=== PATIENT | female | born 1985 | race Caucasian/White ===

== ENCOUNTER 2022-02-14 21:58 | Emergency (ER) | payer MEDICARE, OTHER, SELFPAY ==
--- NOTE | ~2022-02-14 | CT_ITS ---
EXAMINATION: CTA chest PE protocol DATE: 02/14/2022 22:48 INDICATION: Chest pain and pressure radiating to the jaw. Shortness of breath. TECHNIQUE: Computed tomography (CT) pulmonary angiogram of the chest was performed with 100 mL Omnipa que-350 intravenous contrast. Additional 3D reconstructions utilizing coronal maximum intensity proje ction (MIP) were performed. Automated exposure control and iterative reconstruction technique were em ployed. The dose-length product was 358.48 mGy-cm. COMPARISON: None FINDINGS: No pulmonary embolism. No pneumonia, pulmonary edema, pleural effusion or pneumothorax. Heart size is normal. Attenuation material in the region of the atrial septum distorted by motion artifact likely representing an ASD closure device. Correlate with surgical history. No pericardial effusion. Thoraci c aorta is normal in caliber with no dissection. No pathologically enlarged thoracic lymphadenopathy. Visualized upper abdomen is unremarkable. Mild lower thoracic levocurvature. IMPRESSION: 1. No pulmonary embolism or other acute cardiopulmonary disease. Reviewed, dictated and finalized at location A.
[2022-02-14 21:57] VITALS: BP 142/86; PULSE 117; RESP 15; TEMP 36.6; O2SAT 96
[2022-02-14 22:00] VITALS: PULSE 98
--- NOTE | 2022-02-14 22:04 | ECG_ITS ---
Measurements Intervals [place] Rate: 115 P: 48 [place]: 190 QRS: -35 QRSD: 84 T: 71 QT: 332 QTc: 460 Interpretive Statements SINUS TACHYCARDIA LOW QRS VOLTAGE IN EXTREMITY LEADS CANNOT RULE OUT INFERIOR MYOCARDIAL INFARCTION , OF INDETERMINATE AGE ANTEROSEPTAL MYOCARDIAL INFARCTION , OF INDETERMINATE AGE ABNORMAL ECG NO PREVIOUS ECG AVAILABLE FOR COMPARISON Electronically Signed On 02-15-2022 15:58:57 CDT by Bartolome Booth M.D.
[2022-02-14 22:08] VITALS: O2SAT 97
[2022-02-14 22:15] LABS: Basophils Percent Auto 0.3 % (0.2-1.2); Eosinophils Absolute Auto 0.1 K/mm3 (0-0.3); Eosinophils Percent Auto 1.2 % (0-4.4); Hemoglobin 12.9 g/dL (12.0-15.0); Immature Granulocyte Absolute 0.04 K/mm3 (0.00-0.031); Immature Granulocyte Percent A 0.6 % (0-0.5); Lymphocytes Absolute Auto 0.46 K/mm3 (0.9-3.2); Lymphocytes Percent Auto 6.7 % (18.3-44.2); Mean Corpuscular HGB Conc 34.9 g/dl (32-36); Mean Corpuscular Hemoglobin 29.7 pg (26-34); Mean Corpuscular Volume 85.3 fl (80-100); Monocytes Absolute Auto 0.6 K/mm3 (0.1-0.6); Monocytes Percent Auto 8.8 % (2.6-8.5); Neutrophils Absolute Auto 5.7 K/mm3 (1.3-6.7); Neutrophils Percent Auto 82.4 % (45.5-73.1); Platelet Count Result 220 k/mm3 (150-375); Red Blood Count 4.34 M/mm3 (4.2-5.4); Red Cell Distribution Width 12.3 % (11.5-14.5); White Blood Count 6.9 K/mm3 (4.5-10.0)
[2022-02-14 22:16] VITALS: BP 154/87; PULSE 113; RESP 13; O2SAT 97
[2022-02-14] MEDS: KETOROLAC 30 MG/ML VIAL (*BKC) IV PUSH (22:21)
[2022-02-14 22:24] LABS: Alanine Aminotransferase 22 U/L (6-35); Albumin Level 4.1 g/dL (3.5-5.1); Alkaline Phosphatase 87 U/L (38-126); Anion Gap 11 mmol/L (8-16); Aspartate Amino Transferase 26 U/L (14-36); Bilirubin,Total 0.4 mg/dL (0.2-1.3); Blood Urea Nitrogen 9 mg/dL (7-17); Calcium 8.7 mg/dL (8.4-10.2); Carbon Dioxide 22 mmol/L (22-30); Chloride 98 mmol/L (98-107); Estimated CRCL calculation 162 ml/min; Estimated Glomerular Filt Rate > 60; Glucose 270 mg/dL (65-110); Lipase 24 U/L (23-300); Potassium 3.3 mmol/L (3.4-5.0); Sodium 131 mmol/L (137-145)
[2022-02-14 22:25] LABS: INR 0.9; Prothrombin Time 12.2 Seconds (11.1-14.7)
[2022-02-14 22:26] LABS: Partial Thromboplastin Time 27.4 SECONDS (22.3-36.8)
[2022-02-14 22:36] LABS: Troponin I < 0.012 ng/mL (0.000-0.034)
[2022-02-14 22:45] VITALS: BP 154/85; PULSE 106; RESP 12; O2SAT 97
--- NOTE | 2022-02-14 22:48 | ED.CHESTPAIN ---
HPI - Chest Pain General Chief Complaint: Chest Pain Stated Complaint: Chest Pain Time Seen by Provider: 02/14/22 22:02 History of Present Illness HPI narrative: Patient is a 36-year-old female who presents ER with sudden onset chest pain. Began 1 hour prior to arrival. Pain is in her central chest her back and her neck. All started the same time. Worse with deep breath. No fevers or chills or sweats. No sinus congestion or productive cough. Cannot describe any aggravating factors outside deep breath and cannot describe any alleviating factors. Patient reports history of [place] in the past but denies any PCI. She reports she did have a PFO that was fixed. Patient has history of a blood clot in her kidney in the past but is no longer on blood thinners. No lower extremity swelling or cramping. Related Data Home Medications Medication Instructions Recorded Confirmed Creon 20 02/14/22 02/14/22 Movantik 25 mg 02/14/22 atorvastatin 40 mg tablet mg 02/14/22 bupropion HCl 150 mg tablet,12 hr 150 mg PO DAILY 02/14/22 02/14/22 sustained-release buspirone 15 mg tablet 15 mg PO TID 02/14/22 02/14/22 cyclobenzaprine 10 mg tablet 10 mg PO TID 02/14/22 02/14/22 cyproheptadine 4 mg tablet 4 mg PO BID 02/14/22 02/14/22 diazepam 5 mg tablet 5 mg PO BID PRN Anxiety 02/14/22 02/14/22 famotidine 40 mg tablet 40 mg PO DAILY 02/14/22 02/14/22 fenofibrate 150 mg capsule mg PO 02/14/22 gabapentin 800 mg tablet 800 mg PO TID 02/14/22 02/14/22 hydrocodone 7.5 mg-acetaminophen 1 tablet PO Q4H PRN Pain 02/14/22 02/14/22 325 mg tablet hydroxyzine HCl 10 mg tablet mg 02/14/22 insulin degludec 100 unit/mL 100 unit subcut DAILY 02/14/22 02/14/22 subcutaneous solution (Tresiba U-100 Insulin) lisinopril 5 mg tablet 5 mg PO DAILY 02/14/22 02/14/22 melatonin 10 mg tablet 10 mg PO HS PRN Sleep 02/14/22 02/14/22 metaxalone 800 mg tablet 800 mg PO QID 02/14/22 02/14/22 metformin 1,000 mg tablet 1,000 mg PO DAILY 02/14/22 02/14/22 methocarbamol 500 mg tablet 500 mg PO HS 02/14/22 02/14/22 metoprolol succinate 25 mg mg PO 02/14/22 tablet,extended release 24 hr oxycodone-acetaminophen 5 mg-325 1 tablet PO Q6H PRN Pain 02/14/22 02/14/22 mg tablet potassium chloride 10 mEq 10 meq PO 1XD 02/14/22 02/14/22 capsule,extended release promethazine 25 mg tablet 25 mg PO TID 02/14/22 02/14/22 quetiapine 400 mg tablet 400 mg PO BID 02/14/22 02/14/22 sertraline 100 mg tablet 100 mg PO DAILY 02/14/22 02/14/22 trazodone 150 mg tablet 150 mg PO HS 02/14/22 02/14/22 Allergies Allergy/AdvReac Type Severity Reaction Status Date / Time No Known Allergies Allergy Verified 02/14/22 22:19 Review of Systems Review of Systems: All systems reviewed & are unremarkable except as noted in HPI and below Constitutional: Constitutional: Denies chills, Denies fatigue and Denies fever(s) ENT: Denies nasal congestion and Denies sore throat Cardiovascular: Cardiovascular: Reports chest pain, Reports rapid heart rate and Reports radiating jaw, neck or arm pain Respiratory: Respiratory: Denies cough and Denies dyspnea Comments: Pain with deep breath Gastrointestinal: Gastrointestinal: Denies abdominal pain, Denies nausea and Denies vomiting Genitourinary: Genitourinary: Denies nocturia and Denies dysuria Musculoskeletal: Musculoskeletal: Reports back pain, Denies arthralgias and Denies joint swelling Neurologic: Denies syncope, Denies headache(s), Denies focal weakness and Denies numbness [facility] Past Medical History Medical History (Updated 02/14/22 @ 23:52 by Boaz Khan MD) Depression Diabetes GERD (gastroesophageal reflux disease) Hypercholesterolemia Hypertension PFO (patent foramen ovale) Surgical History Surgical History (Updated 02/14/22 @ 22:55 by Boaz Khan MD) Status post patent foramen ovale closure Social History Social History (Updated 02/14/22 @ 23:52 by Boaz Khan MD) Substance use: unknown Exam
--- NOTE | 2022-02-14 23:08 | PC.NURSE ---
Assumed care of pt, pt is alert and upright on the stretcher, on tele monitor, discussed POC.
[2022-02-14] MEDS: ACETAMINOPHEN 325 MG TABLET 650 MG PO (23:46)
--- NOTE | 2022-02-14 23:49 | PC.NURSE ---
Pt states take is IV out, I will come home and take my own pain meds. I need my anxiety meds, I am not waiting here any longer. EDP made aware, pt signed AMA paper work and ambulated out in NAD w/ steady gait.
[2022-02-14 23:51] VITALS: BP 132/89; PULSE 105; RESP 20; O2SAT 96
== END 2022-02-14 23:52 | disposition left against medical advice (07) ==
PROVIDERS: Emergency Provider Emergency Medicine; PCP Nurse Practitioner Family
DX: R07.9 Chest pain, unspecified (principal); R00.0 Tachycardia, unspecified; F32.9 Major depressive disorder, single episode, unspecified; E11.9 Type 2 diabetes mellitus without complications; K21.9 Gastro-esophageal reflux disease without esophagitis; I10 Essential (primary) hypertension; Z79.4 Long term (current) use of insulin
CPT/HCPCS: 36415; 71275; 80053; 83690; 84484; 85025; 85610; 85730; 93005; 96374; 99284; A9270; J1885; Q9967

== ENCOUNTER 2023-02-14 23:19 | Observation (INO) | payer MEDICARE, SELFPAY ==
--- NOTE | ~2023-02-14 | CT_ITS ---
EXAMINATION: CTA chest abdomen pelvis DATE: 02/15/2023 01:45 INDICATION: Chest pain radiating to the back. Shock. TECHNIQUE: Computed tomographic angiography (CTA) of the chest, abdomen, and pelvis was performed wit h 100 mL Omnipaque-350 intravenous contrast. Automated exposure control and iterative reconstruction technique were employed. The dose-length product was 1827.37 mGy-cm. Maximum intensity projection 3D- reconstructions of the aorta and other arteries were constructed by the technologist on a separate wo rkstation. COMPARISON: Chest CT 02/14/2022 FINDINGS: CHEST CTA: The lungs demonstrate dependent atelectasis. No pleural effusion. There are nodules in the thyroid me asuring up to 8 mm, likely not clinically significant. The heart size is normal. There is an interatr ial closure device. No pericardial effusion. The thoracic aorta is normal. There is no pulmonary embo bozena. There is mild thoracic spondylosis. ABDOMEN AND PELVIS CTA: The liver is normal. There are changes of cholecystectomy. The spleen, pancreas, and left adrenal gla nd are normal. There is a 5 mm mass of fat in right adrenal gland, consistent with a myelolipoma. The re is an internal biliary stent in expected position. There is cortical thinning of the kidneys. A 2. 2 x 1.6 cm subcutaneous mass in right abdomen may be an injection site. No dilated loops of bowel. The appendix is normal. There is scarring in left anterior abdominal wall. There are no pathologically enlarged lymph nodes. There is no free intraperitoneal fluid. Abdominal aorta is normal in caliber. There is mild aortic atherosclerosis. There is no significant stenosis of celiac axis, superior mesenteric artery, or the renal arteries. There is no significant stenosis of inferior mesenteric artery. There is mild lumbar spondylosis. IMPRESSION: 1. Mild aortic atherosclerosis. No aneurysm or dissection. Reviewed, dictated and finalized at location E.
--- NOTE | ~2023-02-14 | XR_ITS ---
EXAMINATION: XR chest 1V portable DATE: 02/14/2023 23:46 INDICATION: Chest pain. Hypertension. TECHNIQUE: frontal view of the chest was obtained. COMPARISON: Chest radiograph dated 11/22/[address] dated 02/14/2022 FINDINGS: Lung volumes are mildly decreased. No focal airspace opacities, pulmonary edema, pleural effusion or pneumothorax. The cardiomediastinal silhouette is normal. AST closure device projects over the right side of the heart. Cholecystectomy clips in right upper quadrant. IMPRESSION: 1. Small lung volumes with no acute cardiopulmonary disease. Reviewed, dictated and finalized at location A.
[2023-02-14 23:16] VITALS: BP 92/50; PULSE 90; RESP 12; O2SAT 95
--- NOTE | 2023-02-14 23:22 | ECG_ITS ---
Measurements Intervals [place] Rate: 93 P: 41 IL: 186 QRS: -44 QRSD: 88 T: 50 QT: 445 QTc: 554 Interpretive Statements SINUS RHYTHM LOW QRS VOLTAGE IN EXTREMITY LEADS [QRS DEFLECTION < 0.5 mV IN LIMB LEADS] PATTERN CONSISTENT WITH PULMONARY DISEASE POSSIBLE OLD INFERIOR MYOCARDIAL INFARCTION THE R-WAVE PROGRESSION IS HAS IMPROVED, PERHAPS DUE TO LEAD POSITIONING Electronically Signed On 02-15-2023 9:24:11 CDT by Hayley Heard M.D.
[2023-02-14] MEDS: LACTATED RINGERS 2,000 ML 999 ML IV CONT (23:43)
[2023-02-14 23:52] VITALS: PULSE 83; RESP 5
[2023-02-14 23:54] LABS: Basophils Absolute Auto 0.1 K/mm3 (0.0-0.1); Basophils Percent Auto 0.6 % (0.2-1.2); Eosinophils Absolute Auto 0.1 K/mm3 (0-0.3); Eosinophils Percent Auto 1.6 % (0-4.4); Hematocrit 37.4 % (37.0-47.0); Hemoglobin 12.8 g/dL (12.0-15.0); Immature Granulocyte Absolute 0.03 K/mm3 (0.00-0.031); Immature Granulocyte Percent A 0.3 % (0-0.5); Lymphocytes Absolute Auto 2.22 K/mm3 (0.9-3.2); Lymphocytes Percent Auto 25.8 % (18.3-44.2); Mean Corpuscular HGB Conc 34.2 g/dl (32-36); Mean Corpuscular Hemoglobin 30.1 pg (26-34); Mean Platelet Volume 9.2 fl (7.4-10.4); Monocytes Absolute Auto 0.7 K/mm3 (0.1-0.6); Monocytes Percent Auto 7.9 % (2.6-8.5); Neutrophils Absolute Auto 5.5 K/mm3 (1.3-6.7); Neutrophils Percent Auto 63.8 % (45.5-73.1); Platelet Count Result 294 k/mm3 (150-375); Red Blood Count 4.25 M/mm3 (4.2-5.4); Red Cell Distribution Width 12.5 % (11.5-14.5); White Blood Count 8.6 K/mm3 (4.5-10.0)
[2023-02-14 23:55] LABS: Partial Thromboplastin Time 29.9 SECONDS (22.3-36.8); Prothrombin Time 13.9 Seconds (11.1-14.7)
[2023-02-14 23:56] LABS: Glucose Point of Care 222 mg/dl (65-105)
[2023-02-14 23:56] LABS: Alanine Aminotransferase 19 U/L (6-35); Albumin Level 3.6 g/dL (3.5-5.1); Alkaline Phosphatase 87 U/L (38-126); Anion Gap 7 mmol/L (8-16); Aspartate Amino Transferase 19 U/L (14-36); Bilirubin,Total 0.3 mg/dL (0.2-1.3); Blood Urea Nitrogen 12 mg/dL (7-17); Calcium 8.8 mg/dL (8.4-10.2); Carbon Dioxide 25 mmol/L (22-30); Chloride 99 mmol/L (98-107); Estimated CRCL calculation 90 ml/min; Estimated Glomerular Filt Rate > 60; Glucose 232 mg/dL (65-110); Magnesium 1.7 mg/dL (1.6-2.3); Potassium 3.4 mmol/L (3.4-5.0); Sodium 131 mmol/L (137-145)
[2023-02-14 23:57] LABS: Acetaminophen < 10 ug/mL (10-30); Ethanol < 10 mg/dL (<10); Salicylate < 1.0 mg/dL (2-20)
[2023-02-15] VITALS (20 sets, daily range): BP systolic 90–164; BP diastolic 54–93; PULSE 74–98; RESP 13–18; TEMP 36.2; O2SAT 95–100
[2023-02-15 00:05] LABS: NT Pro B Type Natriuretic Pept 1450 pg/mL (19.9-100)
[2023-02-15 00:08] LABS: Troponin I < 0.012 ng/mL (0.000-0.034)
[2023-02-15 00:09] LABS: D Dimer 0.52 ug/mL (<0.48)
--- NOTE | 2023-02-15 00:23 | PC.NURSE ---
EDP advised to stop normal saline.
[2023-02-15 00:27] LABS: Thyroid Stimulating Hormone 0.254 uIU/mL (0.465-4.680)
[2023-02-15 00:56] LABS: Appearance Urine Clear (Clear); Bacteria Urine None Seen /hpf; Bilirubin Urine Negative (Negative); Blood Urine Negative (Negative); Color Urine Yellow (Yellow); Glucose Urine UA 2+ mg/dL (Negative); Ketones Urine Trace mg/dL (Negative); Leukocyte Esterase Ur Trace LEU/UL (Negative); Need Manual Microscopic Reviewed; Nitrate Urine Negative (Negative); Protein Urine 1+ mg/dL (Negative); RBC Urine 0-2 /hpf (0-2); Specific Grav Ur 1.024 (1.001-1.035); Squamous Epithelial Cell Urine None seen /hpf (Few); WBC Urine 0-5 /hpf
--- NOTE | 2023-02-15 01:06 | PC.NURSE ---
patient only received 1500 mL fluid intake
[2023-02-15 01:13] LABS: Pregnancy On Board Control Positive; Urine Pregnancy Test Negative
[2023-02-15 01:17] LABS: Add Urine Microscopic? YES
--- NOTE | 2023-02-15 04:25 | ED.CHESTPAIN ---
HPI - Chest Pain General Chief Complaint: Chest Pain Stated Complaint: CP, DIZZINESS Time Seen by Provider: 02/14/23 23:24 History of Present Illness HPI narrative: 37-year-old female with history of CHF, prior MIs, presents here with multiple episodes of syncope, she is also have back pain, and chest pain, she had just been admitted to an outside hospital for hypertension. She has not taken any of her other medications today patient has been waiting for her medicine to come through. Related Data Home Medications Medication Instructions Recorded Confirmed Creon 20 02/14/22 02/14/22 Movantik 25 mg 02/14/22 atorvastatin 40 mg tablet mg 02/14/22 bupropion HCl 150 mg tablet,12 hr 150 mg PO DAILY 02/14/22 02/14/22 sustained-release buspirone 15 mg tablet 15 mg PO TID 02/14/22 02/14/22 cyclobenzaprine 10 mg tablet 10 mg PO TID 02/14/22 02/14/22 cyproheptadine 4 mg tablet 4 mg PO BID 02/14/22 02/14/22 diazepam 5 mg tablet 5 mg PO BID PRN Anxiety 02/14/22 02/14/22 famotidine 40 mg tablet 40 mg PO DAILY 02/14/22 02/14/22 fenofibrate 150 mg capsule mg PO 02/14/22 gabapentin 800 mg tablet 800 mg PO TID 02/14/22 02/14/22 hydrocodone 7.5 mg-acetaminophen 1 tablet PO Q4H PRN Pain 02/14/22 02/14/22 325 mg tablet hydroxyzine HCl 10 mg tablet mg 02/14/22 insulin degludec 100 unit/mL 100 unit subcut DAILY 02/14/22 02/14/22 subcutaneous solution (Tresiba U-100 Insulin) lisinopril 5 mg tablet 5 mg PO DAILY 02/14/22 02/14/22 melatonin 10 mg tablet 10 mg PO HS PRN Sleep 02/14/22 02/14/22 metaxalone 800 mg tablet 800 mg PO QID 02/14/22 02/14/22 metformin 1,000 mg tablet 1,000 mg PO DAILY 02/14/22 02/14/22 methocarbamol 500 mg tablet 500 mg PO HS 02/14/22 02/14/22 metoprolol succinate 25 mg mg PO 02/14/22 tablet,extended release 24 hr oxycodone-acetaminophen 5 mg-325 1 tablet PO Q6H PRN Pain 02/14/22 02/14/22 mg tablet potassium chloride 10 mEq 10 meq PO 1XD 02/14/22 02/14/22 capsule,extended release promethazine 25 mg tablet 25 mg PO TID 02/14/22 02/14/22 quetiapine 400 mg tablet 400 mg PO BID 02/14/22 02/14/22 sertraline 100 mg tablet 100 mg PO DAILY 02/14/22 02/14/22 trazodone 150 mg tablet 150 mg PO HS 02/14/22 02/14/22 Allergies Allergy/AdvReac Type Severity Reaction Status Date / Time No Known Allergies Allergy Verified 02/14/22 22:19 Review of Systems Review of Systems: CONST: No fever. HEENT: No sore throat C/V: Chest pain RESP: No cough GI: Epigastric pain : No dysuria. M/S: Back pain SKIN: No rash. NEURO: Syncope PSYCH: [No depression] [facility] Past Medical History Medical History (Updated 02/15/23 @ 05:52 by Delilah Goncalves MD) Depression Diabetes GERD (gastroesophageal reflux disease) Hypercholesterolemia Hypertension PFO (patent foramen ovale) Surgical History Surgical History (Updated 02/14/22 @ 22:55 by Boaz Khan MD) Status post patent foramen ovale closure Social History Social History (Updated 02/14/22 @ 23:52 by Boaz Khan MD) Substance use: unknown Course Vital Signs Vital signs: Vital Signs Pulse Rate 90 02/14/23 23:16 Respiratory Rate 12 02/14/23 23:16 Blood Pressure 92/50 L 02/14/23 23:16 Pulse Oximetry 95 02/14/23 23:16 Oxygen Delivery Room Air 02/14/23 23:16 Pulse Rate 82 02/15/23 04:06 Respiratory Rate 18 02/15/23 04:06 Blood Pressure 104/68 02/15/23 04:06 Pulse Oximetry 100 02/15/23 04:06 Oxygen Delivery Room Air 02/14/23 23:16 MDM - Chest Pain MDM Narrative Medical decision making narrative: 37-year-old female presents here with multiple episodes of syncope, she is also having chest back pain, on exam she does appear to be uncomfortable, vitals concerning for very low blood pressure 70/40, she is immediately placed on monitors, IV access obtained, IV fluids started, I will be careful and judicious with fluids given her history of CHF. Broad work-up for everything from ACS, PE, dissection, in
--- NOTE | 2023-02-15 06:05 | PM.IMHP ---
H&P: HPI History of Present Illness Date/Time: 02/15/23 06:05 Chief Complaint: syncopal episodes, chest pain Narrative: 37-year-old female with history of CHF, prior MIs, and diabetes presents here with multiple episodes of syncope, which she was discharged from [facility] yesterday during which she states she received IV antihypertensives and she was sent home on oral however she has not filled the medication. She had multiple episodes of syncope at home during which she also had back pain, and chest pain, she says she had similar symptoms in the past but not as frequent as this time.? She has not taken any of her other medications today patient has been waiting for her medicine to come through. The night nausea vomiting no diarrhea, shortness of bread, use of recreational drugs. On arrival to the emergency department patient was hypotension which responded to fluid challenge. She feels much better now. Review of Systems Review of Systems: All systems reviewed & are unremarkable except as noted in HPI and below PMFSH Past Medical History Medical History (Updated 02/15/23 @ 06:46 by Amber Beaulieu MD) Depression Diabetes GERD (gastroesophageal reflux disease) Hypercholesterolemia Hypertension PFO (patent foramen ovale) Surgical History Surgical History (Updated 02/14/22 @ 22:55 by Boaz Khan MD) Status post patent foramen ovale closure Social History Social History (Updated 02/14/22 @ 23:52 by Boaz Khan MD) Substance use: unknown Meds Home Medications and Allergies Home Medications Medication Instructions Recorded Confirmed Type Creon 20 02/14/22 02/14/22 History Movantik 25 mg 02/14/22 History atorvastatin 40 mg tablet mg 02/14/22 History bupropion HCl 150 mg tablet,12 hr 150 mg PO DAILY 02/14/22 02/14/22 History sustained-release buspirone 15 mg tablet 15 mg PO TID 02/14/22 02/14/22 History cyclobenzaprine 10 mg tablet 10 mg PO TID 02/14/22 02/14/22 History cyproheptadine 4 mg tablet 4 mg PO BID 02/14/22 02/14/22 History diazepam 5 mg tablet 5 mg PO BID PRN Anxiety 02/14/22 02/14/22 History famotidine 40 mg tablet 40 mg PO DAILY 02/14/22 02/14/22 History fenofibrate 150 mg capsule mg PO 02/14/22 History gabapentin 800 mg tablet 800 mg PO TID 02/14/22 02/14/22 History hydrocodone 7.5 mg-acetaminophen 1 tablet PO Q4H PRN Pain 02/14/22 02/14/22 History 325 mg tablet hydroxyzine HCl 10 mg tablet mg 02/14/22 History insulin degludec 100 unit/mL 100 unit subcut DAILY 02/14/22 02/14/22 History subcutaneous solution (Tresiba U-100 Insulin) lisinopril 5 mg tablet 5 mg PO DAILY 02/14/22 02/14/22 History melatonin 10 mg tablet 10 mg PO HS PRN Sleep 02/14/22 02/14/22 History metaxalone 800 mg tablet 800 mg PO QID 02/14/22 02/14/22 History metformin 1,000 mg tablet 1,000 mg PO DAILY 02/14/22 02/14/22 History methocarbamol 500 mg tablet 500 mg PO HS 02/14/22 02/14/22 History metoprolol succinate 25 mg mg PO 02/14/22 History tablet,extended release 24 hr oxycodone-acetaminophen 5 mg-325 1 tablet PO Q6H PRN Pain 02/14/22 02/14/22 History mg tablet potassium chloride 10 mEq 10 meq PO 1XD 02/14/22 02/14/22 History capsule,extended release promethazine 25 mg tablet 25 mg PO TID 02/14/22 02/14/22 History quetiapine 400 mg tablet 400 mg PO BID 02/14/22 02/14/22 History sertraline 100 mg tablet 100 mg PO DAILY 02/14/22 02/14/22 History trazodone 150 mg tablet 150 mg PO HS 02/14/22 02/14/22 History Allergies Allergy/AdvReac Type Severity Reaction Status Date / Time No Known Allergies Allergy Verified 02/14/22 22:19 Vital Signs Vital Signs - 24 hr 02/14/23 23:16 02/15/23 01:07 02/14/23 23:52 Pulse Rate 90 76 83 Respiratory Rate 12 14 5 L Blood Pressure 92/50 L 90/56 L Pulse Oximetry 95 95 Oxygen Delivery Room Air 02/15/23 00:00 02/15/23 00:01 02/15/23 00:02 Pulse Rate 80 80 81 Respiratory Rate 16 15 13 Blood Pressure 91/54 L Pulse O
--- NOTE | 2023-02-15 06:38 | ADMGEN ---
This patient, Micaela Maravilla, was admitted to [facility] Surg Room 303-01. Patient/family oriented to hospital policies and general routines including ID bracelet, bed and alarms, visiting hours, pain management, procedures, bathroom and other care routines, personal items, smoking policy, room service/diet, and visiting hours. Information on how to activate the Rapid Response Team has been discussed. Patient/Family are encouraged to report perceived risks to care and to ask questions if they do not understand what they are told or what they should do.
[2023-02-15 07:46] LABS: Glucose Point of Care 192 mg/dl (65-105)
--- NOTE | 2023-02-15 08:30 | PC.NURSE ---
spoke with pt about home meds, she states she does not know the names or dosages of medication, she does state she takes Percocet and Tylenol 4 every 6 hours at home, does not know other meds
--- NOTE | 2023-04-01 12:31 | PM.EVENT ---
Event Note Event Note Event Note: Patient left AMA before seen by morning team.
== END 2023-02-15 10:25 | disposition left against medical advice (07) ==
LOC: ANHED 02-15 05:52 → ANH3MEDSUR 02-15 06:08
PROVIDERS: Admitting Provider Student in an Organized Health Care Education/Training Program; Emergency Provider Emergency Medicine; PCP Nurse Practitioner Family; Visit Provider Student in an Organized Health Care Education/Training Program
DX: R55 Syncope and collapse (principal); I95.9 Hypotension, unspecified; I11.0 Hypertensive heart disease with heart failure; I50.9 Heart failure, unspecified; I25.2 Old myocardial infarction; M54.9 Dorsalgia, unspecified; E11.9 Type 2 diabetes mellitus without complications; K21.9 Gastro-esophageal reflux disease without esophagitis; I70.0 Atherosclerosis of aorta; F32.A Depression, unspecified; E78.00 Pure hypercholesterolemia, unspecified; E11.65 Type 2 diabetes mellitus with hyperglycemia; E87.1 Hypo-osmolality and hyponatremia; R79.89 Other specified abnormal findings of blood chemistry; R07.9 Chest pain, unspecified; R79.1 Abnormal coagulation profile; Z79.84 Long term (current) use of oral hypoglycemic drugs; Z79.4 Long term (current) use of insulin; Z79.891 Long term (current) use of opiate analgesic; Z79.899 Other long term (current) drug therapy; Z98.890 Other specified postprocedural states
CPT/HCPCS: 36415; 71045; 71275; 74174; 80053; 80307; 81001; 81025; 82948; 83605; 83735; 83880; 84443; 84484; 85025; 85380; 85610; 85730; 87040; 93005; 96360; 99285; G0378; J7120; Q9967